=== PATIENT | female | born 1980 | race Caucasian/White ===

== ENCOUNTER 2016-03-03 12:54 | Outpatient (CLI) | payer MEDICAID ==
[~2016-03-03] VITALS: Ht 165.1 cm; Wt 83.5 kg
[2016-03-03] MEDS ORDERED: PRENAT PO (13:12)
[2016-03-03 13:13] VITALS: Ht 165.1 cm; Wt 83.5 kg
[2016-03-03] MEDS ORDERED: FER325 PO (13:13)
[2016-03-03 13:14] VITALS: BP 110/73; PULSE 87; RESP 18
[2016-03-03] MEDS ORDERED: DEXTROSE 5%-LR 1,000 ML IV SCH ×2 (13:30→14:30)
[2016-03-03 13:58] LABS: ADD UMIC NO; URINE BILIRUBIN (Dip) NEGATIVE (NEGATIVE); URINE BLOOD (Dip) NEGATIVE (NEGATIVE); URINE COLOR LT. YELLOW (YELLOW); URINE GLUCOSE (Dip) NEGATIVE (NEGATIVE); URINE KETONES (Dip) NEGATIVE (NEGATIVE); URINE LEUKOCYTE ESTERASE (Dip) NEGATIVE (NEGATIVE); URINE NITRITE (Dip) NEGATIVE (NEGATIVE); URINE TOTAL PROTEIN (Dip) NEGATIVE (NEGATIVE); URINE UROBILINOGEN (Dip) 0.2 E.U./dL (0.1-1.0)
[2016-03-03] MEDS ORDERED: LACTATED RINGER'S 1,000 ML IV SCH (14:30)
--- NOTE | 2016-03-03 15:03 | RADRPT ---
PROCEDURE: OB ultrasound for biophysical profile CLINICAL INDICATION: Biophysical profile. . TECHNIQUE: Multiple sonographic images of the pelvis were obtained. Transabdominal view of the gr avid uterus are available for review. The images were reviewed on a PACS workstation. COMPARISON: OB ultrasound 03/27/2013 FINDINGS: Single intrauterine gestation. Presentation: cephalic. Placenta: anterior breathing movement = 2/2 tone = 2/2 motion = 2/2 GRICELDA = 2/2 GRICELDA = 17.9 cm heart rate: 145 beats per minute IMPRESSION: Single intrauterine gestation. Biophysical profile 10/05 RPTAT: PP .Sukumar Juarez MD, MD Date Time Electronically viewed and signed by .Sukumar Juarez MD, on 03/03/2016 15:03 .B/
[2016-03-03 16:17] LABS: BASOPHILS % 0.2 % (0.0-2.0); EOSINOPHILS # 0.1 10^3/ul (0.0-0.5); EOSINOPHILS % 0.9 % (0.0-7.0); HEMATOCRIT 34.6 % (37.0-47.0); HEMOGLOBIN 11.5 g/dl (12.0-16.0); LYMPHOCYTES # 1.4 10^3/ul (0.8-2.9); LYMPHOCYTES % 14.2 % (15.0-51.0); MEAN CORPUSCULAR HEMOGLOBIN 29.2 pg (29.0-33.0); MEAN CORPUSCULAR HGB CONC 33.3 g/dl (32.0-37.0); MEAN CORPUSCULAR VOLUME 87.5 fl (82.0-101.0); MEAN PLATELET VOLUME 8.5 fl (7.4-10.4); MONOCYTE # 0.7 10^3/ul (0.3-0.9); MONOCYTES % 6.8 % (0.0-11.0); NEUTROPHIL # 7.9 10^3/ul (1.6-7.5); NEUTROPHILS % 77.9 % (39.0-77.0); PLATELET COUNT 340 10^3/UL (140-440); RED BLOOD COUNT 3.95 10^6/ul (4.20-5.40); UNCORRECTED WBC 10.2 10^3/ul (4.8-10.8); WHITE BLOOD COUNT 10.2 10^3/ul (4.8-10.8)
[2016-03-03 16:18] LABS: CONDITION 1; LH ANALYZER COMMENTS 1
[2016-03-03 16:52] LABS: ALBUMIN 3.4 g/dl (3.3-4.9)
[2016-03-03 16:54] LABS: BILIRUBIN,INDIRECT 0.3 mg/dl (0-1.1); BILIRUBIN,TOTAL 0.3 mg/dl (0.2-1.3); CREATININE 0.66 mg/dl (0.44-1.00)
[2016-03-03 16:55] LABS: ALBUMIN/GLOBULIN RATIO 0.97; TOTAL PROTEIN 6.9 g/dl (6.1-8.1)
--- NOTE | 2016-03-03 17:12 | TRIAGE ---
OB Triage Datetime Report Generated by CPN: 03/03/2016 17:11 Datetime: 03/03/2016 17:03 Bedside Blood Glucose: 100 Datetime: 03/03/2016 15:52 Vaginal Exam Dilatation (cms): 0.0 Exam By: ARDALAN Vaginal Bleeding: None Cervix, Consistency: Firm Cervix, Position: Posterior Datetime: 03/03/2016 15:00 Stage of : OB Triage Maternal Assessment Level of Consciousness: Fully Conscious Labor Evaluation Frequency: NONE Monitor Mode: External Resting Tone [place]: Relaxed Heart Rate FHR Baseline Rate: 135 Monitor Mode: External US Variability: Moderate 6-25 bpm Accelerations: 15X15 Decelerations: None Pain Assessment Pain Scale: 4 Pain Presence: Constant Pain Type: Ache Pain Location: Abdomen Pain Goal: 3 Pain Relief Measures: Comfort Measures Membrane Status: Intact Vaginal Bleeding: None Datetime: 03/03/2016 14:00 Stage of : OB Triage Maternal Assessment Level of Consciousness: Fully Conscious Labor Evaluation Frequency: NONE Monitor Mode: External Resting Tone [place]: Relaxed Heart Rate FHR Baseline Rate: 135 Monitor Mode: External US Variability: Moderate 6-25 bpm Accelerations: 15X15 Decelerations: None Pain Assessment Pain Scale: 6 Pain Presence: Constant Pain Type: Ache Pain Location: Abdomen Pain Goal: 3 Pain Relief Measures: Comfort Measures Membrane Status: Intact Vaginal Bleeding: None Datetime: 03/03/2016 13:11 Assessment Type: Triage Maternal Assessment Level of Consciousness: Fully Conscious DTR's/Clonus: DTRs 2+; No Clonus Headache: Denies Blurred Vision: No Respiratory Effort: Unlabored; Regular Rhythm; Equal Expansion Breath Sounds, Left: Clear and Equal Breath Sounds, Right: Clear and Equal Nausea/Vomiting: Denies RUQ Epigastric Pain: Denies Lower Extremities Edema: None Degree: None Upper Extremities Edema: None Degree: None Facial Edema: None Fall Risk Assessment History of Falling: (0) No Secondary Diagnosis: (0) No Ambulatory Aid: (0) Bedrest/Nurse Assist IV Therapy: (0) No Gait: (0) Normal/Bedrest/Immobile Mental Status: (0) Oriented to Own Ability Fall Score: 0 Fall Risk Score Definition: No Risk: No action required Datetime: 03/03/2016 13:10 Time of Arrival: 03/03/2016 12:55 EGA: 40.2 Arrived By: Ambulatory Arrived From: Home Chief Complaint: c/o N/V/D X 3 DAYS Movement: Present Contractions: Denies/Absent Rupture of Membranes: Denies Vaginal Bleeding: None Vaginal Discharge: Denies Recent Sexual Intercouse: Denies Abdominal Trauma: Not Applicable Patient Complaints: Nausea; Vomiting Time Provider Notified: 03/03/2016 13:30 Provider Notified: SARIAH Initial Plan: IV HYDRATION, BPP, UA, CBC, AMP, EFM
--- NOTE | 2016-03-03 17:33 | QN ---
Documentation Comment 36 years old with IUP at 40 weeks and 2 days here with complaint of nausea and vomiting and diarrhea for the past 6 days Denies any fever or chills. LOF or vaginal bleeding. Denies any contractions. Denies any sick contact. Denies eating out side. Diarrhea about 5-6 times. day O: GA: A&O, NAD Abdomen: soft, non tender, Gravid Fundal height consistent with GA NST: Cat 1 GRICELDA: 17.9 Occasional rare contractions seen on the monitor Hematology - 72 Hrs Test 03/03/16 13:45 Basophils # 0.010^3/ul (0.0-0.1) Basophils % 0.2% (0.0-2.0) Blood Morphology Comment Eosinophils # 0.110^3/ul (0.0-0.5) Eosinophils % 0.9% (0.0-7.0) Hematocrit 34.6% (37.0-47.0) L Hemoglobin 11.5g/dl (12.0-16.0) L Lymphocytes # 1.410^3/ul (0.8-2.9) Lymphocytes % 14.2% (15.0-51.0) L Mean Corpuscular Hemoglobin 29.2pg (29.0-33.0) Mean Corpuscular Hemoglobin Concent 33.3g/dl (32.0-37.0) Mean Corpuscular Volume 87.5fl (82.0-101.0) Mean Platelet Volume 8.5fl (7.4-10.4) Monocytes # 0.710^3/ul (0.3-0.9) Monocytes % 6.8% (0.0-11.0) Neutrophils # 7.910^3/ul (1.6-7.5) H Neutrophils % 77.9% (39.0-77.0) H Nucleated Red Blood Cells # 0.010^3/ul (0.0-0.0) Nucleated Red Blood Cells % 0.0/100WBC (0.0-0.0) Platelet Count 69976^3/UL (140-440) Red Blood Count 3.9510^6/ul (4.20-5.40) L Red Cell Distribution Width 15.0% (11.5-14.5) H White Blood Count 10.210^3/ul (4.8-10.8) Chemistry Test 03/03/16 13:45 03/03/16 17:03 Alanine Aminotransferase (ALT/SGPT) 18IU/L (13-69) Albumin 3.4g/dl (3.3-4.9) Albumin/Globulin Ratio 0.97 Alkaline Phosphatase 216IU/L (42-121) H Anion Gap 17 (8-16) H Aspartate Amino Transf (AST/SGOT) 32IU/L (15-46) Blood Urea Nitrogen 8mg/dl (7-20) Calcium Level 9.0mg/dl (8.4-10.2) Carbon Dioxide Level 19mmol/L (21-31) L Chloride Level 104mmol/L (97-110) Creatinine 0.66mg/dl (0.44-1.00) Direct Bilirubin 0.00mg/dl (0.00-0.20) Globulin 3.50g/dl (1.3-3.2) H Glucose Level 49mg/dl (70-220) *L Indirect Bilirubin 0.3mg/dl (0-1.1) Potassium Level 4.0mmol/L (3.5-5.1) Sodium Level 136mmol/L (135-144) Total Bilirubin 0.3mg/dl (0.2-1.3) Total Protein 6.9g/dl (6.1-8.1) Bedside Glucose 100mg/dL (70-220) Patient received IV hydration symptoms resolved NST Cat 1 BPP: 10/05 GRICELDA: DC home Advised to continue PO Hydration Labor precaution and kick counts discussed with the patient. Follow up with her OB clinic in 1-2 days GEORGINA WONG MD Mar 03, 2016 17:33
== END 2016-03-03 17:51 | disposition home or self-care (01) ==
LOC: OBT 12:54 → L-D 12:54 → OBT 17:51
PROVIDERS: ATTEND Obstetrics & Gynecology
DX: O21.0 Mild hyperemesis gravidarum (principal); R19.7 Diarrhea, unspecified; O48.0 Post-term pregnancy; O09.523 Supervision of elderly multigravida, third trimester; Z3A.40 40 weeks gestation of pregnancy
CPT/HCPCS: 36415; 76818; 80053; 81003; 82962; 85025; 96360; J7120; J7121; Z7500; G0463

== ENCOUNTER 2016-03-06 08:46 | Inpatient (IN) | payer MEDICAID ==
[~2016-03-06] VITALS: Ht 165.1 cm; Wt 84.3 kg
[~2016-03-06 08:46] MED LIST: FER325 PO; PRENAT PO
[2016-03-06 08:55] VITALS: Ht 165.1 cm; Wt 84.3 kg
[2016-03-06 08:56] VITALS: BP 110/64; PULSE 71; RESP 20
--- NOTE | 2016-03-06 09:27 | RADRPT ---
PROCEDURE: US biophysical profile. CLINICAL INDICATION: Post dates. Gestational age is 40 weeks 5 days. TECHNIQUE: Multiple sonographic images of the uterus were obtained. The images were revi ewed on a PACS workstation. COMPARISON: 03/03/2016. FINDINGS: There is a single live intrauterine gestation. heart rate is 136 beats per minute. The position is cephalic. The placenta is anterior grade II with no abruption or previa. The GRICELDA is 9.1 cm. (Normal = 5-20 cm.) Breathing Movement: 2 Gross Body Movement: 2 Tone: 2 Qualitative Amniotic Fluid Volume: 2 TOTAL: 8 IMPRESSION: 1. The biophysical score is 8/8. RPTAT: QQ .Sal Bell MD, Date Time Electronically viewed and signed by .Sal Bell MD, on 03/06/2016 09:26 .R/
--- NOTE | 2016-03-06 09:29 | RADRPT ---
PROCEDURE: US OB. CLINICAL INDICATION: 40.5 weeks post datets TECHNIQUE: Multiple sonographic images of the pelvis were obtained. The images were reviewed on a PACS workstation. COMPARISON: 03/03/2016 FINDINGS: Cervix not evaluated secondary to transabdominal exam. There is a single viable intrauterine gestation. Cardiac activity is present with 154 beats per min yen. There is a cephalic presentation. Measurements were made in order to determine age. The results are as follows: BPD =9.11 cm HC =33.87 cm AC =36.07 cm FL =7.2 cm. Estimated gestational age of approximately 74-cqsm-9-day The estimated date of delivery is 03/19/2016. The EFW = 35 97 g +/-539 g. The placenta is anterior and grade 2. There is no evidence for an abruption or placenta previa. There are no adnexal masses.. IMPRESSION: 1. Single viable intrauterine gestation of approximately 38 weeks 1 day. The estimated date of deli very is 03/19/2016 . 2. Presentation is cephalic .Dinorah Cannon MD, MD Date Time Electronically viewed and signed by .Dinorah Cannon MD, on 03/06/2016 09:28 .M/
[2016-03-06] MEDS ORDERED: LACTATED RINGER'S 1,000 ML IV PRN (11:15)
[2016-03-06] MEDS: LACTATED RINGER'S 1,000 ML IV SCH ×2 (11:20→17:18)
[2016-03-06 11:30] LABS: BASOPHILS % 0.4 % (0.0-2.0); EOSINOPHILS # 0.2 10^3/ul (0.0-0.5); EOSINOPHILS % 1.9 % (0.0-7.0); HEMATOCRIT 37.7 % (37.0-47.0); HEMOGLOBIN 12.6 g/dl (12.0-16.0); LYMPHOCYTES # 2.4 10^3/ul (0.8-2.9); LYMPHOCYTES % 25.9 % (15.0-51.0); MEAN CORPUSCULAR HEMOGLOBIN 29.2 pg (29.0-33.0); MEAN CORPUSCULAR HGB CONC 33.5 g/dl (32.0-37.0); MEAN CORPUSCULAR VOLUME 87.2 fl (82.0-101.0); MEAN PLATELET VOLUME 7.6 fl (7.4-10.4); MONOCYTE # 0.6 10^3/ul (0.3-0.9); MONOCYTES % 6.3 % (0.0-11.0); NEUTROPHILS % 65.5 % (39.0-77.0); PLATELET COUNT 352 10^3/UL (140-440); RED BLOOD COUNT 4.33 10^6/ul (4.20-5.40); RED CELL DISTRIBUTION WIDTH 14.9 % (11.5-14.5); UNCORRECTED WBC 9.1 10^3/ul (4.8-10.8); WHITE BLOOD COUNT 9.1 10^3/ul (4.8-10.8)
[2016-03-06] MEDS ORDERED: CARBOPROST 250 MCG INJ IM PRN (11:30)
[2016-03-06] MEDS ORDERED: MISOPROSTOL 200 MCG TAB PR PRN (11:30)
[2016-03-06] MEDS ORDERED: METHYLERGONOVINE 0.2 MG INJ IM PRN (11:30)
[2016-03-06] MEDS ORDERED: LIDOCAINE 1% (MPF) 30 ML INJ INJ PRN (11:30)
[2016-03-06] MEDS ORDERED: OXYTOCIN 30 UNITS/LR 500 ML IV SCH ×3 (11:30)
[2016-03-06] MEDS ORDERED: BUTORPHANOL 2 MG INJ IV PRN ×2 (11:30)
[2016-03-06] MEDS ORDERED: DINOPROSTONE 10 MG VAG SUPP VAG ONE (11:30)
[2016-03-06] MEDS ORDERED: OXYTOCIN 30 UNITS/LR 500 ML IV PRN (11:30)
[2016-03-06 11:32] LABS: CONDITION 1; LH ANALYZER COMMENTS 1
[2016-03-06 11:39] LABS: INR 0.94; PROTIME 12.6 Sec (12.2-14.2)
[2016-03-07] MEDS: LACTATED RINGER'S 1,000 ML IV SCH ×3 (00:55→13:57)
[2016-03-07] MEDS ORDERED: DINOPROSTONE 10 MG VAG SUPP VAG ONE (01:30)
[2016-03-07] MEDS ORDERED: FENTAnyl 2MCG/ML-ROPIV 0.2% 100 ML ONE (07:00)
[2016-03-07] MEDS ORDERED: FENTAnyl 2MCG/ML-ROPIV 0.2% 100 ML BAG EPI SCH (07:30)
[2016-03-07] MEDS ORDERED: NALOXONE (0.4 MG/ML) INJ IV PRN (07:30)
[2016-03-07] MEDS ORDERED: OXYTOCIN 30 UNITS/LR 500 ML IV SCH (10:30)
--- NOTE | 2016-03-07 17:22 | HP ---
Date/Time of Note Date/Time of Note DATE: 03/07/16 TIME: 17:05 OB - History Hx of Present Free Text/Dictation 29 mL years old female 4 para 0 SAB 1,2 ectopic admitted at 40 weeks5/7days with premature rupture of membrane as of 514 today with cervical dilatation fingertip ,40% effacement vertex presentation at minus 2 station mild contractions, requires labor augmentation with Pitocin IV drip which started after admission, Chief Complaint: premature rupture of membrane early labor Estimated Due Date: Mar 01, 2016 : 4 Para: 0 Spontaneous : 1 Care: Good Care Ultrasounds: No ultrasounds Obstetrical Complications: None Medical Complications: None Past Family/Social History * Past Medical, Surgical, Family and Obstetric Histories reviewed from chart. Rubella: immune RPR/VDRL: Negative GBS Status: Negative HBsAG: Negative OB Admission Exam Vital Signs Vital Signs Vital Signs Date Time Temp Pulse Resp B/P Pulse Ox O2 Delivery O2 Flow Rate FiO2 03/06/16 08:56 98.3 71 20 110/64 Room Air Physical Exam HEENT: WNL Heart: Rhythm Normal Lungs: Clear, Equal Abdomen: WNL Extremities: Normal Cervical Dilatation: Fingertip Effacement: 25% Station: -2 Membranes: Ruptured Amniotic Fluid: Clear Heart Rate: 130's Accelerations: Accelerations Present Decelerations: No Decelerations Varibility: Moderate Contractions on Admission: >10 Minutes Apart Intensity: Mild Last 72 hours Lab Results CBC & BMP 03/06/16 11:17 OB Assessment/Plan Reason for admission: induction of labor IRVING ROLLE MD Mar 07, 2016 17:18
--- NOTE | 2016-03-07 17:26 | LDN ---
Date/Time of Note Date/Time of Note DATE: 03/07/16 TIME: 17:23 Delivery Summary Normal spontaneous vaginal delivery of baby boy from OA position shoulder delivered without any difficulty the rest of the baby's body followed Placenta, spontaneous expulsion inspected complete, vaginal inspection laceration estimated blood loss 250 mL patient transferred to recovery room in a good condition Placenta Delivered: Spontaneously Perineum intact?: Yes Anesthesia type: Epidural Estimated blood loss: 250 Sponge & Needle done & correct: Yes All needle counts correct: Yes Any foreign bodies felt in the: No Problems: Delivery Information Sex Sex: male Apgars 1 Minute: 9 5 Minute: 9 Suctioning Nose & mouth suctioned at dominguez: Yes Delee suction performed: No Umbilical Cord Umbilical cord with: 3 Vessels Cord presentations: nuchal cord Cord Blood was obtained: Yes IRVING ROLLE MD Mar 07, 2016 17:26
[2016-03-07] MEDS ORDERED: OXYTOCIN 30 UNITS/LR 500 ML IV PRN (17:30)
[2016-03-07] MEDS ORDERED: MISOPROSTOL 200 MCG TAB PR PRN (17:30)
[2016-03-07] MEDS ORDERED: METHYLERGONOVINE 0.2 MG INJ IM PRN (17:30)
[2016-03-07] MEDS ORDERED: OXYCODONE/ACETAMINOPHEN (5/325) TAB PO PRN ×2 (17:30)
[2016-03-07] MEDS ORDERED: CEFAZOLIN 1 GM/50 ML (PMX) 50 ML IVPB SCH (17:30)
[2016-03-07] MEDS ORDERED: ACETAMINOPHEN/CODEINE #3 TAB PO PRN ×2 (17:30)
[2016-03-07] MEDS ORDERED: CARBOPROST 250 MCG INJ IM PRN (17:30)
--- NOTE | 2016-03-07 19:40 | DELSUM ---
Delivery Summary A-C Datetime Report Generated by CPN: 03/07/2016 19:40 DELIVERY PERSONNEL Manager Msw: De Los Santos, [place] MATERNAL INFORMATION Delivery Anesthesia: Epidural Medications in Delivery: PITOCIN Estimated Blood Loss (ml): 250 Placenta Cultured: No Maternal Complications: None LABOR SUMMARY EDC: 03/01/2016 00:00 No. Babies in Womb: 1 Attempted: No Labor Anesthesia: Epidural LABOR INFORMATION Reason for Induction: Not Applicable Complete Dilatation: 03/07/2016 16:33 Cervical Ripening Agents: Cervidil Cervical Ripening Agents: Cervidil Cervical Ripening Agents: Cervidil Oxytocin: Augmentation Group B Beta Strep: Negative Antibiotics # of Doses: 0 Antibiotics Time of Last Dose: N/A Steroids Given: None Reason Steroids Not Administered: Not Applicable MEMBRANES Membranes Rupture Method: Spontaneous Rupture of Membranes: 03/07/2016 05:15 Length of Rupture (hr): 11.63 Amniotic Fluid Color: Clear Amniotic Fluid Color: Clear Amniotic Fluid Color: Clear Amniotic Fluid Amount: Moderate Amniotic Fluid Amount: Large Amniotic Fluid Amount: Moderate Amniotic Fluid Odor: Normal Amniotic Fluid Odor: Normal Amniotic Fluid Odor: Normal STAGES OF LABOR Stage 2 hr: 0 Stage 2 min: 20 Stage 3 hr: 0 Stage 3 min: 2 VAGINAL DELIVERY Episiotomy: None Laceration Extension: N/A Laceration Type: None Laceration Repair: Not Applicable Initial Vag Sponge Count: 10 Final Vag Sponge Count: 10 Initial Vag Sharps Count: 1 Final Vag Sharps Count: 1 Sponge Count Correct: Yes Sharps Count Correct: Yes Count Comment: 10 RAYTEX BABY A INFORMATION Infant Delivery Date/Time: 03/07/2016 16:53 Method of Delivery: Vaginal Method of Delivery: Vaginal Born in Route : No : N/A Forceps: N/A Vacuum Extraction: N/A Shoulder Dystocia : N/A SHOULDER DYSTOCIA BABY A Delivery Date/Time: 03/07/2016 16:53 PRESENTATION/POSITION BABY A Presentation: Cephalic Presentation: Cephalic Cephalic Presentation: Vertex Vertex Position: Left Occipital Anterior Breech Presentation: N/A PLACENTA INFORMATION BABY A Placenta Delivery Time : 03/07/2016 16:55 Placenta Method of Delivery: Spontaneous Placenta Method of Delivery: Spontaneous Placenta Status: Delivered SCORES BABY A Heart Rate 1 min: >100 bpm Resp Effort 1 min: Good Cry Reflex Irritability 1 min: Cough/Sneeze/Pulls Away Muscle Tone 1 min: Active Motion Color 1 min: Body [place], Extremit Blue Resuscitation Effort 1 min: Tactile Stimulation SCORE 1 MIN: 9 Heart Rate 5 min: >100 bpm Resp Effort 5 min: Good Cry Reflex Irritability 5 min: Cough/Sneeze/Pulls Away Muscle Tone 5 min: Active Motion Color 5 min: Body [place], Extremit Blue SCORE 5 MIN: 9 INFORMATION BABY A Gestational Age at Delivery: 40.5 Gestational Status: Full Term- 39- 40.6 Weeks Outcome : Liveborn Infant Condition : Stable Sex: Female Sex: Male IDENTIFICATION/MEDS BABY A ID Band Number: [id number] ID Band Location: Right Leg; Left Arm Sensor Applied: Yes Sensor Number: [id number] Sensor Location : Cord Clamp Vitamin K Given : Not Given Erythromycin Given: Not Given WEIGHT/LENGTH BABY A Birthweight (gm): 3275 Infant Weight (lb): 7 Infant Weight (oz): 4 Infant Length (in): 19.00 Infant Length (cm): 48.26 CORD INFORMATION BABY A No. Cord Vessels: 3 Nuchal Cord : N/A Cord Blood Taken: Yes Suction: Mouth; Nose ASSESSMENT BABY A Infant Complications: None Physical Findings at Delivery: Within Normal Limits Respirations: Appears Normal Paper Cone Machine Tender/ALS Called : No Care By: MAYRA GONZÁLESC Transferred To: Remains with Mother
--- NOTE | 2016-03-07 19:43 | OPRPT ---
Intraop Record Datetime Report Generated by CPN: 03/07/2016 19:43 Datetime: 03/06/2016 21:32 Drug Allergies/Reactions: No Known Allergy (03/06/2016) Datetime: 03/03/2016 13:11 Food Allergies/Reactions: nka Latex Allergies/Reactions: No Latex Allergies Datetime: 01/01/2016 08:59 Drug Allergies/Reactions: No Known Allergy (03/27/2013)
--- NOTE | 2016-03-07 19:43 | DELSUM ---
Delivery Summary A-C Datetime Report Generated by CPN: 03/07/2016 19:43 DELIVERY PERSONNEL Cardiac Cath Lab Radiology Technologist: De Los Santos, [place] MATERNAL INFORMATION Delivery Anesthesia: Epidural Medications in Delivery: PITOCIN Estimated Blood Loss (ml): 250 Placenta Cultured: No Maternal Complications: None LABOR SUMMARY EDC: 03/01/2016 00:00 No. Babies in Womb: 1 Attempted: No Labor Anesthesia: Epidural LABOR INFORMATION Reason for Induction: Not Applicable Complete Dilatation: 03/07/2016 16:33 Cervical Ripening Agents: Cervidil Cervical Ripening Agents: Cervidil Cervical Ripening Agents: Cervidil Oxytocin: Augmentation Group B Beta Strep: Negative Antibiotics # of Doses: 0 Antibiotics Time of Last Dose: N/A Steroids Given: None Reason Steroids Not Administered: Not Applicable MEMBRANES Membranes Rupture Method: Spontaneous Rupture of Membranes: 03/07/2016 05:15 Length of Rupture (hr): 11.63 Amniotic Fluid Color: Clear Amniotic Fluid Color: Clear Amniotic Fluid Color: Clear Amniotic Fluid Amount: Moderate Amniotic Fluid Amount: Large Amniotic Fluid Amount: Moderate Amniotic Fluid Odor: Normal Amniotic Fluid Odor: Normal Amniotic Fluid Odor: Normal STAGES OF LABOR Stage 2 hr: 0 Stage 2 min: 20 Stage 3 hr: 0 Stage 3 min: 2 VAGINAL DELIVERY Episiotomy: None Laceration Extension: N/A Laceration Type: None Laceration Repair: Not Applicable Initial Vag Sponge Count: 10 Final Vag Sponge Count: 10 Initial Vag Sharps Count: 1 Final Vag Sharps Count: 1 Sponge Count Correct: Yes Sharps Count Correct: Yes Count Comment: 10 RAYTEX BABY A INFORMATION Infant Delivery Date/Time: 03/07/2016 16:53 Method of Delivery: Vaginal Method of Delivery: Vaginal Born in Route : No : N/A Forceps: N/A Vacuum Extraction: N/A Shoulder Dystocia : N/A SHOULDER DYSTOCIA BABY A Delivery Date/Time: 03/07/2016 16:53 PRESENTATION/POSITION BABY A Presentation: Cephalic Presentation: Cephalic Cephalic Presentation: Vertex Vertex Position: Left Occipital Anterior Breech Presentation: N/A PLACENTA INFORMATION BABY A Placenta Delivery Time : 03/07/2016 16:55 Placenta Method of Delivery: Spontaneous Placenta Method of Delivery: Spontaneous Placenta Status: Delivered SCORES BABY A Heart Rate 1 min: >100 bpm Resp Effort 1 min: Good Cry Reflex Irritability 1 min: Cough/Sneeze/Pulls Away Muscle Tone 1 min: Active Motion Color 1 min: Body [place], Extremit Blue Resuscitation Effort 1 min: Tactile Stimulation SCORE 1 MIN: 9 Heart Rate 5 min: >100 bpm Resp Effort 5 min: Good Cry Reflex Irritability 5 min: Cough/Sneeze/Pulls Away Muscle Tone 5 min: Active Motion Color 5 min: Body [place], Extremit Blue SCORE 5 MIN: 9 INFORMATION BABY A Gestational Age at Delivery: 40.5 Gestational Status: Full Term- 39- 40.6 Weeks Outcome : Liveborn Infant Condition : Stable Sex: Female Sex: Male IDENTIFICATION/MEDS BABY A ID Band Number: [id number] ID Band Location: Right Leg; Left Arm Sensor Applied: Yes Sensor Number: [id number] Sensor Location : Cord Clamp Vitamin K Given : Not Given Erythromycin Given: Not Given WEIGHT/LENGTH BABY A Birthweight (gm): 3275 Infant Weight (lb): 7 Infant Weight (oz): 4 Infant Length (in): 19.00 Infant Length (cm): 48.26 CORD INFORMATION BABY A No. Cord Vessels: 3 Nuchal Cord : N/A Cord Blood Taken: Yes Suction: Mouth; Nose ASSESSMENT BABY A Infant Complications: None Physical Findings at Delivery: Within Normal Limits Respirations: Appears Normal Motor And Generator Assembler/ALS Called : No Care By: MAYRA GONZÁLESC Transferred To: Remains with Mother
[2016-03-07 20:15] VITALS: BP 114/56; PULSE 80; RESP 16
[2016-03-07 20:45] VITALS: BP 110/62; PULSE 74; RESP 18
[2016-03-07] MEDS: SENNA/DOCUSATE NA (8.6MG/50MG) TAB PO SCH (21:17)
[2016-03-07] MEDS: LANOLIN 7 GM TUBE TOP PRN (21:19)
[2016-03-07] MEDS: OXYTOCIN 30 UNITS/LR 500 ML IV SCH ×2 (21:19→21:29)
[2016-03-07] MEDS: IBUPROFEN 600 MG TAB PO SCH (23:53)
[2016-03-08] VITALS: BP 115/60; PULSE 76; RESP 18
[2016-03-08 04:00] VITALS: BP 110/65; PULSE 73; RESP 18
[2016-03-08] MEDS: OXYTOCIN 30 UNITS/LR 500 ML IV SCH ×2 (05:29→09:29)
[2016-03-08] MEDS: IBUPROFEN 600 MG TAB PO SCH ×3 (05:57→17:49)
[2016-03-08 08:00] VITALS: BP 107/77; PULSE 63; RESP 18
[2016-03-08 08:24] LABS: BASOPHIL # 0.1 10^3/ul (0.0-0.1); BASOPHILS % 0.5 % (0.0-2.0); EOSINOPHILS # 0.2 10^3/ul (0.0-0.5); EOSINOPHILS % 1.6 % (0.0-7.0); HEMATOCRIT 31.1 % (37.0-47.0); HEMOGLOBIN 10.6 g/dl (12.0-16.0); LYMPHOCYTES # 2.1 10^3/ul (0.8-2.9); LYMPHOCYTES % 16.6 % (15.0-51.0); MEAN CORPUSCULAR HEMOGLOBIN 29.7 pg (29.0-33.0); MEAN CORPUSCULAR HGB CONC 34.1 g/dl (32.0-37.0); MEAN CORPUSCULAR VOLUME 87.1 fl (82.0-101.0); MEAN PLATELET VOLUME 7.6 fl (7.4-10.4); MONOCYTE # 0.5 10^3/ul (0.3-0.9); MONOCYTES % 4.2 % (0.0-11.0); NEUTROPHIL # 9.5 10^3/ul (1.6-7.5); NEUTROPHILS % 77.1 % (39.0-77.0); PLATELET COUNT 275 10^3/UL (140-440); RED BLOOD COUNT 3.57 10^6/ul (4.20-5.40); RED CELL DISTRIBUTION WIDTH 14.6 % (11.5-14.5); UNCORRECTED WBC 12.4 10^3/ul (4.8-10.8); WHITE BLOOD COUNT 12.4 10^3/ul (4.8-10.8)
[2016-03-08 08:30] LABS: CONDITION 1; LH ANALYZER COMMENTS 1
[2016-03-08] MEDS: SENNA/DOCUSATE NA (8.6MG/50MG) TAB PO SCH ×3 (09:00→20:56)
[2016-03-08 12:45] VITALS: BP 105/71; PULSE 65; RESP 18
[2016-03-08 16:00] VITALS: BP 110/77; PULSE 78; RESP 18
--- NOTE | 2016-03-08 18:25 | PN ---
Date/Time of Note Date/Time of Note DATE: 03/08/16 TIME: 18:24 OB Subjective Subjective Subjective day 1 Afebrile vital sign a stable abdomen soft uterus firm lochia normal extremity normal Laboratory Tests Test 03/08/16 07:30 Basophils # 0.110^3/ul Basophils % 0.5% Blood Morphology Comment Eosinophils # 0.210^3/ul Eosinophils % 1.6% Hematocrit 31.1% Hemoglobin 10.6g/dl Lymphocytes # 2.110^3/ul Lymphocytes % 16.6% Mean Corpuscular Hemoglobin 29.7pg Mean Corpuscular Hemoglobin Concent 34.1g/dl Mean Corpuscular Volume 87.1fl Mean Platelet Volume 7.6fl Monocytes # 0.510^3/ul Monocytes % 4.2% Neutrophils # 9.510^3/ul Neutrophils % 77.1% Nucleated Red Blood Cells # 0.010^3/ul Nucleated Red Blood Cells % 0.0/100WBC Platelet Count 70826^3/UL Red Blood Count 3.5710^6/ul Red Cell Distribution Width 14.6% White Blood Count 12.410^3/ul Current Medications Medications (Trade) Dose Ordered Sig/Keira Route PRN Reason Start Time Stop Time Status Last Admin Dose Admin Lactated Ringer's (Lr) 1,000 ml @ 125 mls/hr Q8H IV 03/06/16 11:05 03/07/16 17:32 DC 03/07/16 13:57 Dinoprostone 10 mg 10 mg ONCE ONCE VAG 03/06/16 11:30 03/06/16 11:31 DC 03/06/16 11:34 Oxytocin/Lactated Ringer's 500 ml @ 0 mls/hr TITRATE IV 03/06/16 11:30 03/06/16 11:30 DC Butorphanol Tartrate (Stadol) 1 mg Q2H PRN IV PAIN 03/06/16 11:30 03/07/16 17:32 DC Butorphanol Tartrate (Stadol) 2 mg Q2H PRN IV PAIN 03/06/16 11:30 03/07/16 17:32 DC Lidocaine 30 ml 30 ml ONCE PRN INJ EPISIOTOMY/TEARING 03/06/16 11:30 03/07/16 17:32 DC Oxytocin/Lactated Ringer's 500 ml @ 125 mls/hr ONCE -MAY REPEAT X1 IV 03/06/16 11:30 03/07/16 17:32 DC 03/07/16 17:24 Oxytocin/Lactated Ringer's 500 ml @ 125 mls/hr ONCE IV 03/06/16 11:30 03/07/16 17:32 DC Lactated Ringer's 1,000 ml @ 2,000 mls/hr Q30M PRN IV PRE-EPIDURAL BOLUS 03/06/16 11:15 03/07/16 17:32 DC 03/07/16 05:55 Oxytocin/Lactated Ringer's 500 ml @ 0 mls/hr ONCE PRN IV For Hemorrhage Management 03/06/16 11:30 03/07/16 17:32 DC Methylergonovine Maleate (Methergine) 0.2 mg ONCE PRN IM VAGINAL BLEEDING 03/06/16 11:30 03/07/16 17:32 DC Carboprost Tromethamine (Hemabate) 250 mcg ONCE PRN IM VAGINAL BLEEDING 03/06/16 11:30 03/07/16 17:32 DC Misoprostol (Cytotec) 1,000 mcg ONCE PRN MD VAGINAL BLEEDING 03/06/16 11:30 03/07/16 17:32 DC Dinoprostone 10 mg 10 mg ONCE ONCE VAG 03/07/16 01:30 03/07/16 01:31 DC 03/07/16 01:35 Fentanyl/ Ropivacaine 100 ml @ ud STK-MED ONCE .ROUTE 03/07/16 07:00 03/07/16 07:01 DC Naloxone HCl (Narcan) 0.2 mg Q2M PRN IV FOR RESP RATE 8 OR LESS 03/07/16 07:30 03/07/16 17:32 DC Fentanyl/ Ropivacaine 100 ml 100 ml EPIDURAL (PCEA) EPI 03/07/16 07:30 03/07/16 17:32 DC 03/07/16 15:19 Oxytocin/Lactated Ringer's 500 ml @ 0 mls/hr TITRATE IV 03/07/16 10:30 03/07/16 17:32 DC 03/07/16 10:27 Acetaminophen/ Codeine Phosphate (Tylenol No.3) 1 tab Q4H PRN PO PAIN LEVEL 4-6 03/07/16 17:30 Acetaminophen/ Codeine Phosphate (Tylenol No.3) 2 tab Q4H PRN PO PAIN LEVEL 7-10 03/07/16 17:30 Oxycodone/ Acetaminophen (Percocet (5/ 325)) 1 tab Q4H PRN PO PAIN LEVEL 4-6 03/07/16 17:30 Oxycodone/ Acetaminophen (Percocet (5/ 325)) 2 tab Q4H PRN PO PAIN LEVEL 7-10 03/07/16 17:30 Ibuprofen (Motrin) 600 mg Q6 PO 03/07/16 18:00 03/08/16 17:49 Simethicone (Mylicon) 160 mg Q8H PRN PO DISTENSION/GAS/BLOATING 03/07/16 17:30 Senna/Docusate Sodium (Senokot-S) 1 tab BID PO 03/07/16 21:00 03/08/16 12:47 Lanolin (Oar-K-Ccdxxo) 1 applic BEDSIDE MEDICATION PRN TOP BEDSIDE FOR PATRICIA TO NIPPLES 03/07/16 17:30 03/07/16 21:19 Diphtheria/ Tetanus/Acell Pertussis 0.5 ml 0.5 ml ONCE ONCE IM* 03/10/16 09:00 03/10/16 09:01 Oxytocin/Lactated Ringer's 500 ml @ 0 mls/hr ONCE PRN IV For Hemorrhage Management 03/07/16 17:30 Methylergonovine Maleate (Methergine) 0.2 mg ONCE PRN IM VAGINAL BLEEDING 03/07/16 17:30 Carboprost Tromethamine (Hemabate) 250 mcg ONCE PRN IM VAGINAL BLEEDING 03/07/16 17:30 Misoprostol 1000 mcg 1,000 mcg ONCE PRN MD VAGINAL BLEEDING 03/07/16 17:30 Cefazolin Sodium 50 ml @ 100 mls/hr ONCE IVPB 03/07/16 17:30 03/07/16 17:59 DC Oxytocin/Lactated Ringer's 500 ml @ 125 mls/hr Q4H IV 03/07/16 17:29 03/08/16 10:46 DC 03/07/16 21:19 Influenza Virus Vaccine (Fluzone) 0.5 ml ONCE ONCE IM* 03/09/16 09:00 03/09/16 09:01 IRVING ROLLE MD Mar 08, 2016 18:25
[2016-03-08 19:30] VITALS: BP 110/59; PULSE 76; RESP 20
[2016-03-08] MEDS: LANOLIN 7 GM TUBE TOP PRN (20:56)
[2016-03-09] MEDS: IBUPROFEN 600 MG TAB PO SCH ×3 (00:06→12:41)
[2016-03-09 04:00] VITALS: BP 122/79; PULSE 74; RESP 18
[2016-03-09 08:30] VITALS: BP 105/70; PULSE 62; RESP 17
[2016-03-09] MEDS ORDERED: INFLUENZA VIRUS VACCINE 0.5 ML (DISPENSING) IM* ONE (09:00)
[2016-03-09] MEDS: SENNA/DOCUSATE NA (8.6MG/50MG) TAB PO SCH (09:16)
--- NOTE | 2016-03-09 09:36 | PD.PPDC ---
COKE DRAWER Discharge Instruction Condition Patient Condition: Good Diet Diet: Resume Regular Diet Activity/Restrictions Activity: Normal Activity May Shower Restrictions: No Exercising No Lifting No Driving No Sexual Activity Nothing in the Vagina No Struble No Tampons, douche Wound/Drain Care Instructions Wound/Drain Care Instructions: Wash with soap and water Keep clean and dry Follow-up Follow-up with Physician: 2, Week/Weeks Return to clinic for OFFICE ADMINISTRATION Instructions: Fever greater than 101 Worsening abdominal pain More than 2 pads per hour OB Instructions: Depression IRVING ROLLE MD Mar 09, 2016 09:36
--- NOTE | 2016-03-09 09:39 | DS ---
Date/Time of Note Date/Time of Note DATE: 03/09/16 TIME: 09:36 Obstetrical Discharge Record Final Diagnosis Final Diagnosis: Term delivered Vaginal Delivery Obstetrical Delivery: Spontaneous Condition on Discharge Physical Assessment Last Vitals: day 2 Afebrile abdomen soft uterus firm lochia normal extremity normal discharge instructions given recommended make appointment in 2 weeks to be seen at the clinic Voiding: Yes Bowel Movement: Yes Breast: Soft, non-tender, Filling Fundus: Firm Calf Tenderness: No Patient Condition: Good IRVING ROLLE MD Mar 09, 2016 09:38
[2016-03-09 11:00] LABS: BASOPHILS % 0.4 % (0.0-2.0); EOSINOPHILS # 0.3 10^3/ul (0.0-0.5); EOSINOPHILS % 3.1 % (0.0-7.0); HEMATOCRIT 31.4 % (37.0-47.0); HEMOGLOBIN 10.7 g/dl (12.0-16.0); LYMPHOCYTES # 2.2 10^3/ul (0.8-2.9); MEAN CORPUSCULAR HEMOGLOBIN 29.5 pg (29.0-33.0); MEAN CORPUSCULAR VOLUME 86.8 fl (82.0-101.0); MEAN PLATELET VOLUME 7.5 fl (7.4-10.4); MONOCYTE # 0.6 10^3/ul (0.3-0.9); MONOCYTES % 5.7 % (0.0-11.0); NEUTROPHILS % 68.8 % (39.0-77.0); PLATELET COUNT 300 10^3/UL (140-440); RED BLOOD COUNT 3.62 10^6/ul (4.20-5.40); RED CELL DISTRIBUTION WIDTH 15.1 % (11.5-14.5); UNCORRECTED WBC 10.1 10^3/ul (4.8-10.8); WHITE BLOOD COUNT 10.1 10^3/ul (4.8-10.8)
[2016-03-09 11:10] LABS: CONDITION 1; LH ANALYZER COMMENTS 1
[2016-03-10] MEDS ORDERED: DIPHTH/TET/ACEL PERTUSS (ADULT) 0.5 ML VIAL IM* ONE (09:00)
== END 2016-03-09 14:50 | disposition home or self-care (01) | DRG 775 ==
LOC: OBT 08:46 → L-D 08:48 → OBT 11:12 → L-D 11:27 → PP1 03-07 20:05
PROVIDERS: ADMIT Obstetrics & Gynecology; ATTEND Obstetrics & Gynecology
PROC: 10E0XZZ Delivery of Products of Conception, External Approach (ICD-10-PCS; principal; 2016-03-07)
DX: O69.81X0 Labor and delivery complicated by cord around neck, without compression, not applicable or unspecified (principal); Z37.0 Single live birth; Z3A.40 40 weeks gestation of pregnancy
CPT/HCPCS: 36415; 62319; 76815; 76818; 85025; 85610; 85730; 86592; 86900; 86901; 90686; G0463; J2590; J3010; J7120